=== PATIENT | female | born 1935 | race African-American/Black ===

== ENCOUNTER 2016-07-18 13:04 | Emergency (ER) | payer MEDICARE ==
[~2016-07-18] VITALS: Ht 165.1 cm; Wt 70.8 kg
[~2016-07-18 13:04] MED LIST: ACET500T33 PO; BUME1TAB PO; CALC600T PO; CETI10CA PO; CETI10TA22 PO; CRESTOR5 MG PO; DARB25DI SQ; DICL100G7 TP; DIGO125T PO; FLUT16SP2 NS; FURO-68 PO; MAGN400C PO; METO100T2 PO; METO25TA4 PO; MONT10TA9 PO; MULT-245 PO; NYST15PO9 TP; PANT40TA3 PO; SUCR1TAB29 PO; TIOT18CA IH; VIT1CAPS38 PO; WARF1TAB7 PO; WARF5TAB7 PO; WARF6TAB49 PO; WARF7.5T6 PO
--- NOTE | 2016-07-18 13:28 | PHYS DOC ---
Past Medical History Past Medical History: CHF, COPD, Heart Disease, Hypertension Additional Past Medical Histor: DECREASE KIDNEY FUNCTION Past Surgical History: Cholecystectomy, Coronary Bypass Surgery Additional Past Surgical Histo: COLON SX, Past Surgical History 2 heart valve replacements Alcohol Use: None Drug Use: None Adult General Chief Complaint Chief Complaint: LOWER EXTREMITY SWELLING [facility] HPI Patient is a 80 year old female who presents with leg edema and swelling over the past 1 week and some dyspnea. Patient stopped taking her Bumex 1 week ago after she ran out of it. Denies any chest pain denies any fever or cough. Patient was apparently seen at her primary care doctor's office Dr. Ruiz and was noted to be hypoxic there were concerned about anemia as well so she was transferred here. Lives at home with her son and [id number]. Patient is not on home oxygen normally. Patient has chronic renal insufficiency with a baseline creatinine around 2.3 and recent hemoglobins in the 9 range. Review of Systems Review of Systems Constitutional: Denies fever or chills [] Eyes: Denies change in visual acuity, redness, or eye pain [] HENT: Denies nasal congestion or sore throat [] Respiratory: Denies cough or shortness of breath [] Cardiovascular: No additional information not addressed in HPI [] GI: Denies abdominal pain, nausea, vomiting, bloody stools or diarrhea [] : Denies dysuria or hematuria [] Musculoskeletal: Denies back pain or joint pain [] Integument: Denies rash or skin lesions [] Neurologic: Denies headache, focal weakness or sensory changes [] Endocrine: Denies polyuria or polydipsia [] Allergies Allergies Allergies Coded Allergies Type Severity Reaction Last Updated Verified fexofenadine Allergy Intermediate 08/12/14 Yes hydrocodone Adverse Reaction Intermediate Nausea and Vomiting 08/30/14 Yes morphine Adverse Reaction Intermediate Nausea and Vomiting 08/31/14 Yes tramadol Adverse Reaction Intermediate Nausea and Vomiting 08/30/14 Yes Physical Exam Physical Exam Constitutional: Well developed, well nourished, no acute distress, non-toxic appearance. [] HENT: Normocephalic, atraumatic, bilateral external ears normal, oropharynx moist, no oral exudates, nose normal. [] Eyes: PERRLA, EOMI, conjunctiva normal, no discharge. [] Neck: Normal range of motion, no tenderness, supple, no stridor. [] Cardiovascular:Heart rate regular rhythm, no murmur [] Lungs & Thorax: Bilateral breath sounds clear to auscultation [not appreciate any crackles on exam at this point in time.] Abdomen: Bowel sounds normal, soft, no tenderness, no masses, no pulsatile masses. [] Skin: Warm, dry, no erythema, no rash. [] Back: No tenderness, no CVA tenderness. [] Extremities: No tenderness, no cyanosis, no clubbing, ROM intact, patient has 1 + pitting edema in lower extremities and some swelling to the bilateral hands.. [] Neurologic: Alert and oriented X 3, normal motor function, normal sensory function, no focal deficits noted. [] Psychologic: Affect normal, judgement normal, mood normal. [] Current Patient Data Vital Signs Vital Signs Date Time Temp Pulse Resp B/P (MAP) Pulse Ox O2 Delivery O2 Flow Rate FiO2 07/18/16 16:43 60 10 133/71 (91) 93 07/18/16 13:43 Room Air 07/18/16 13:18 97.6 97.6 Lab Values Laboratory Tests Test 07/18/16 14:35 White Blood Count 2.8 x10^3/uL (4.0-11.0) L Red Blood Count 3.20 x10^6/uL (3.50-5.40) L Hemoglobin 9.7 g/dL (12.0-15.5) L Hematocrit 29.1 % (36.0-47.0) L Mean Corpuscular Volume 91 fL (79-100) Mean Corpuscular Hemoglobin 31 pg (25-35) Mean Corpuscular Hemoglobin Concent 33 g/dL (31-37) Red Cell Distribution Width 19.4 % (11.5-14.5) H Platelet Count 89 x10^3/uL (140-400) L Neutrophils (%) (Auto) 66 % (31-73) Lymphocytes (%) (Auto) 10 % (24-48) L Monocytes (%) (Auto) 20 % (0-9) H Eosinophils (%) (Auto) 2 % (0-3) Basophils (%) (Auto) 1 % (0-3) Neutrophils # (Auto) 1.8 x10^3uL (1.8-7.7) Lymphocytes # (Auto) 0.3 x10^3/uL (1.0-4.8) L Monocytes # (Auto) 0.6 x10^3/uL (0.0-1.1) Eosinophils # (Auto) 0.1 x10^3/uL (0.0-0.7) Basophils # (Auto) 0.0 x10^3/uL (0.0-0.2) Segmented Neutrophils % 62 % (35-66) Lymphocytes % 13 % (24-48) L Monocytes % 21 % (0-10) H Eosinophils % 2 % (0-5) Basophils % 2 % (0-3) Platelet Estimate Decreased (ADEQUATE) Polychromasia Slight Poikilocytosis Mod Anisocytosis Slight Target Cells Few Ovalocytes Few Jace Cells Few Schistocytes Few RBC Morphology Bizarre Forms Few Prothrombin Time 33.4 SEC (11.7-14.0) H Prothrombin Time INR 3.6 (0.8-1.1) H Sodium Level 138 mmol/L (136-145) Potassium Level 4.5 mmol/L (3.5-5.1) Chloride Level 105 mmol/L (98-107) Carbon Dioxide Level 23 mmol/L (21-32) Anion Gap 10 (6-14) Blood Urea Nitrogen 30 mg/dL (7-20) H Creatinine 2.2 mg/dL (0.6-1.0) H Estimated GFR (Cockcroft-Gault) 26.1 Glucose Level 95 mg/dL (70-99) Calcium Level 9.8 mg/dL (8.5-10.1) Total Bilirubin 1.9 mg/dL (0.2-1.0) H Direct Bilirubin 1.0 mg/dL (0.0-0.2) H Aspartate Amino Transferase (AST) 33 U/L (15-37) Alanine Aminotransferase (ALT) 20 U/L (14-59) Alkaline Phosphatase 107 U/L (46-116) Troponin I Quantitative 0.021 ng/mL (0.000-0.055) Total Protein 8.0 g/dL (6.4-8.2) Albumin 3.3 g/dL (3.4-5.0) L Laboratory Tests 07/18/16 14:35 Laboratory Tests 07/18/16 14:35 EKG EKG Normal sinus rhythm rate of 61 , no STEMI, some LVH with strain pattern; my interpretation. [] Interpretation Time: 1319 Radiology/Procedures Radiology/Procedures Cardiomegaly no pulmonary edema image independently reviewed by me radiology report read by me [] Course & Med Decision Making Course & Med Decision Making Pertinent Labs and Imaging studies reviewed. (See chart for details) [She was stable during her stay. Oxygen saturation on room air was 96-98%. Work of breathing was normal chronic renal insufficiency is at baseline. She has her medications waiting for her to be picked up at the pharmacy. Patient and family are comfortable going home. Just the case with Dr. MURGUIA who agrees with the plan of care.] Dragon Disclaimer Dragon Disclaimer This electronic medical record was generated, in whole or in part, using a voice recognition dictation system. Departure Departure Impression: Primary Impression: Chronic congestive heart failure Additional Impression: Medical non-compliance Disposition: 01 HOME, SELF-CARE Condition: STABLE Referrals: PARRIS RUIZ MD (PCP) Problem Qualifiers LAUREL NEVAREZ MD July 18, 2016 13:28
--- NOTE | 2016-07-18 14:05 | RAD ---
Portable chest, 07/18/2016: History: Congestive heart failure, dyspnea Comparison is made to a study from 05/17/2015. A left-sided transvenous pacemaker remains in place with 2 leads extending into the right heart. A cardiac valvular prosthesis is in place. The heart is mildly enlarged. There is calcific plaquing of the aorta. The pulmonary vascularity is at the upper limits of normal. There is blunting of the left lateral costophrenic angle which has been present on multiple previous studies. The appearance suggests scarring. Linear parenchymal opacities in the left parahilar region also chronic and probably due to scarring. No pulmonary consolidation is seen. No right-sided pleural fluid is evident. IMPRESSION: 1. Cardiomegaly with borderline vascular congestion. 2. Left basilar pleural-parenchymal opacities probably due to scarring. A small amount of chronic or recurrent left-sided pleural fluid cannot be entirely excluded.
[2016-07-18 14:51] LABS: BASO % 1 % (0-3); EOS % 2 % (0-3); HEMATOCRIT 29.1 % (36.0-47.0); HEMOGLOBIN 9.7 g/dL (12.0-15.5); LYMPH # 0.3 x10^3/uL (1.0-4.8); LYMPH % 10 % (24-48); MEAN CORPUSCULAR HEMOGLOBIN 31 pg (25-35); MEAN CORPUSCULAR HGB CONC 33 g/dL (31-37); MEAN CORPUSCULAR VOLUME 91 fL (79-100); MONO % 20 % (0-9); NEUT % 66 % (31-73); PLATELET COUNT 89 x10^3/uL (140-400); RED CELL DISTRIBUTION WIDTH 19.4 % (11.5-14.5); WHITE BLOOD COUNT 2.8 x10^3/uL (4.0-11.0)
[2016-07-18 14:57] LABS: INR 3.6 (0.8-1.1); PROTHROMBIN TIME PATIENT 33.4 SEC (11.7-14.0)
[2016-07-18 15:11] LABS: CALCIUM 9.8 mg/dL (8.5-10.1); CREATININE 2.2 mg/dL (0.6-1.0); GFR 26.1; POTASSIUM 4.5 mmol/L (3.5-5.1)
[2016-07-18 15:12] LABS: % BASOS 2 % (0-3); % EOS 2 % (0-5); ANISOCYTOSIS SLIGHT; PLT ESTIMATE DECREASED (ADEQUATE); POIKILOCYTOSIS MOD
[2016-07-18 15:13] LABS: ALBUMIN 3.3 g/dL (3.4-5.0); BURR CELLS FEW; OVALOCYTES FEW; POLYCHROMASIA SLIGHT; SCHISTOCYTES FEW; TARGET CELLS FEW; TOTAL BILIRUBIN 1.9 mg/dL (0.2-1.0)
--- NOTE | 2016-07-18 16:10 | EKG ---
[facility] [address] [place] [address] Test Date: 2016-07-18 Test Time: 13:19:56 Pat Name: NEGRITA LUJAN Department: Room: Gender: F Community Marketing Manager: : 1935 Requested By: LAUREL NEVAREZ Order Number: [id number] Reading MD: Phyllis Mueller Measurements Intervals [place] Rate: 61 P: -90 WA: 350 QRS: 139 QRSD: 118 T: 172 QT: 418 QTc: 422 Interpretive Statements PROBABLE SINUS RHYTHM PROLONGED WA INTERVAL ABNORMAL RIGHT AXIS DEVIATION QRS(T) CONTOUR ABNORMALITY ANTEROSEPTAL INFARCT CONSISTENT WITH HIGH LATERAL INFARCT AGE UNDETERMINED ST & T ABNORMALITY, CONSIDER LATERAL ISCHEMIA T ABNORMALITY IN ANTERIOR LEADS INFEROLATERAL LEADS CONSIDER MYOCARDIAL ISCHEMIA Electronically Signed On 07-20-2016 21:52:55 CDT by Phyllis Mueller
[2016-07-18 16:43] VITALS: BP 133/71
== END 2016-07-18 16:54 | disposition home or self-care (01) ==
LOC: ER 13:04
DX: I11.0 Hypertensive heart disease with heart failure (principal); I50.9 Heart failure, unspecified; J44.9 Chronic obstructive pulmonary disease, unspecified; Z91.14 Patient's other noncompliance with medication regimen; Z88.5 Allergy status to narcotic agent; Z88.8 Allergy status to other drugs, medicaments and biological substances; Z95.1 Presence of aortocoronary bypass graft; Z95.2 Presence of prosthetic heart valve
CPT/HCPCS: 36415; 71010; 80048; 80076; 84484; 85007; 85027; 85610; 93005; 99285-25

== ENCOUNTER → 2016-08-01 | Outpatient (CLI) | payer MEDICARE ==
[2016-07-18 16:43] VITALS: BP 133/71
--- NOTE | 2016-08-01 13:17 | RAD ---
Indication hip pain associated with a fall 2 days previously. AP and frog leg views of the left hip were obtained. No acute bony finding is seen. If clinical index of suspicion for fracture remains high an MRI examination could be performed
--- NOTE | 2016-08-01 14:28 | RAD ---
Left upper extremity venous ultrasound, 08/01/2016: History: Left arm swelling Duplex evaluation of the major veins of the left upper extremity was performed including grayscale, color-flow and spectral Doppler analysis. The left internal jugular, subclavian, axillary, brachial, basilic and cephalic veins are patent. Patent radial and ulnar veins are also evident in the forearm. There is mild subcutaneous edema noted anteriorly in the mid arm. IMPRESSION: No evidence of venous thrombosis involving the major left upper extremity veins.
== END | disposition home or self-care (01) ==
LOC: US 13:42
PROVIDERS: ATTEND Internal Medicine Hematology & Oncology
DX: M79.89 Other specified soft tissue disorders (principal); D46.9 Myelodysplastic syndrome, unspecified; D69.6 Thrombocytopenia, unspecified; M25.552 Pain in left hip
CPT/HCPCS: 73502; 93971